=== PATIENT | female | born 1980 | race Caucasian/White ===

== ENCOUNTER → 2018-05-11 11:46 | Outpatient (CLI) | payer OTHER, SELFPAY ==
[2018-05-11 14:53] LABS: Thyroid Stim Hormone (TSH) 0.88 uIU/mL (0.358-3.74)
== END ==
PROVIDERS: Nurse Practitioner Adult Health; Family Provider Family Medicine; PCP Family Medicine; Visit Provider Family Medicine
DX: F41.9 Anxiety disorder, unspecified (principal); F32.9 Major depressive disorder, single episode, unspecified
CPT/HCPCS: 36415; 84443

== ENCOUNTER → 2020-08-08 | Outpatient (CLI) | payer OTHER, SELFPAY ==
[2018-02-08 11:53] VITALS: BMI 17.9
[2020-08-08 15:18] LABS: Absolute Lymphocyte Count 1.71 X10^3/uL (0.83-4.51); Absolute Neutrophil Count 5.4 X10^3/uL (2.0-7.7); Basophil# 0.03 X10^3/uL; Basophil% 0.4 % (0-1); Eosinophil# 0.01 X10^3/uL; Eosinophils% 0.1 % (0-5); Hematocrit 37.7 % (37-47); Lymphocyte # 1.71 X10^3/ul (4.0); Lymphocyte % 22.1 % (19-41); Mean Corp Hgb Conc 31.8 g/dL (32-36); Mean Corpuscular Hgb 28.4 pg (27.0-32.0); Mean Corpuscular Volume 89.1 fL (81-99); Monocyte# 0.54 X10^3/uL; NRBC Flagged by Analyzer 0 % (0-5); Neutrophil # 5.42 X10^3/uL (2.7-7.7); Platelet Count 264 K/mm3 (150-450); RBC Distribution Width CV 12.8 % (11.6-14.6); RBC Distribution Width SD 41.8 fl (35.1-43.9); Red Blood Count 4.23 M/mm3 (4.2-5.4); White Blood Count 7.7 K/mm3 (4.4-11.0)
[2020-08-08 15:34] LABS: ALB/GLOB Ratio 0.8 RATIO (0.9-2.4); AST(SGOT) 13 U/L (15-37); Alanine Aminotransfer ALT/SGPT 17 U/L (13-56); Albumin, Serum 3.2 g/dL (3.2-5.0); Alkaline Phosphatase 81 U/L (45-117); Anion Gap 5 (5-15); BUN 9 mg/dL (7-18); BUN/Creat Ratio 11.6 RATIO (10-20); Calcium,Total 8.6 mg/dL (8.5-10.1); Chloride 106 mmol/L (98-107); Creatinine, Serum 0.78 mg/dL (0.55-1.02); EST Glomerular Filtration Rate 89 mL/min (>60); Est Glom Filt Rate - Afr Amer 107 mL/min (>60); Globulin 3.8 g/dL (2.2-4.2); Glucose 83 mg/dL (74-106); Potassium 3.9 mmol/L (3.5-5.1); Sodium Level 139 mmol/L (136-145); T4 Free Direct 1.13 ng/dL (0.76-1.46); Thyroid Stim Hormone (TSH) 1.82 uIU/mL (0.358-3.74)
== END | disposition home or self-care (01) ==
LOC: MTLAB 12:37
PROVIDERS: PCP Family Medicine; Referring Provider Family Medicine; Visit Provider Family Medicine
DX: F41.8 Other specified anxiety disorders (principal); F98.8 Other specified behavioral and emotional disorders with onset usually occurring in childhood and adolescence
CPT/HCPCS: 36415; 80053; 84439; 84443; 85025

== ENCOUNTER → 2020-10-27 16:23 | Outpatient (CLI) | payer OTHER, SELFPAY ==
[2018-02-08 11:53] VITALS: BMI 17.9
== END ==
PROVIDERS: PCP Family Medicine; Visit Provider Nurse Practitioner Family
DX: Z20.828 Contact with and (suspected) exposure to other viral communicable diseases (principal)
CPT/HCPCS: 87635; U0003

== ENCOUNTER → 2020-11-05 | Outpatient (CLI) | payer OTHER, SELFPAY | END | disposition home or self-care (01) | LOC: LABSPEC 13:58 | PROVIDERS: PCP Family Medicine; Visit Provider Family Medicine | DX: Z20.828 Contact with and (suspected) exposure to other viral communicable diseases (principal) | CPT/HCPCS: 87633; 87635; U0003 ==

== ENCOUNTER 2022-01-25 14:21 | Outpatient (CLI) | payer BC, SELFPAY ==
[2022-02-01 17:54] LABS: HPV APTIMA, High Risk Negative (Negative)
== END 2022-01-25 23:59 | disposition home or self-care (01) ==
LOC: LABSPEC 14:29
PROVIDERS: PCP Family Medicine; Visit Provider Student in an Organized Health Care Education/Training Program
DX: Z12.4 Encounter for screening for malignant neoplasm of cervix (principal)
CPT/HCPCS: 87624; 88175; G0145

== ENCOUNTER → 2022-04-23 | Outpatient (CLI) | payer BC, SELFPAY ==
[2022-04-23 12:24] LABS: Absolute Lymphocyte Count 1.94 X10^3/uL (0.83-4.51); Absolute Neutrophil Count 5.2 X10^3/uL (2.0-7.7); Basophil# 0.03 X10^3/uL; Basophil% 0.4 % (0-1); Eosinophil# 0.06 X10^3/uL; Eosinophils% 0.8 % (0-5); Hematocrit 41.9 % (37-47); Hemoglobin 13.6 g/dL (12.0-15.0); Lymphocyte # 1.94 X10^3/ul (0.83-4.51); Mean Corp Hgb Conc 32.5 g/dL (32-36); Mean Corpuscular Hgb 28.2 pg (27.0-32.0); Mean Corpuscular Volume 86.9 fL (81-99); Mean Platelet Vol. 10.5 fl (6.2-12.0); Monocyte# 0.52 X10^3/uL; Monocyte% 6.7 % (0-10); NRBC Flagged by Analyzer 0 % (0-5); Neutrophil # 5.18 X10^3/uL (2.7-7.7); Neutrophil % 66.7 % (47-70); Platelet Count 304 K/mm3 (150-450); RBC Distribution Width CV 12.3 % (11.6-14.6); RBC Distribution Width SD 39.5 fl (35.1-43.9); Red Blood Count 4.82 M/mm3 (4.2-5.4); White Blood Count 7.8 K/mm3 (4.4-11.0)
[2022-04-23 12:40] LABS: Vitamin D,25 Hydroxy 29.6 ng/mL
[2022-04-23 12:40] LABS: Amphetamine Urine VISTA NEGATIVE (<1000 ng/mL); Barbiturate Urine VISTA NEGATIVE (< 200 ng/mL); Benzodiazepine Urine VISTA NEGATIVE (< 200 ng/mL); Cocaine Urine VISTA NEGATIVE (< 300 ng/mL); Ecstacy Urine VISTA NEGATIVE (< 500 ng/mL); Methadone Urine VISTA NEGATIVE (< 300 ng/mL); PCP Urine VISTA NEGATIVE (< 25 ng/mL); THC Urine VISTA NEGATIVE (< 50 ng/mL); Vista UDS pH Range 8
[2022-04-23 12:45] LABS: PTHIN 71.6 pg/mL (18.4-80.1)
[2022-04-23 12:49] LABS: ALB/GLOB Ratio 0.9 RATIO (0.9-2.4); AST(SGOT) 11 U/L (15-37); Alanine Aminotransfer ALT/SGPT 14 U/L (13-56); Albumin, Serum 3.5 g/dL (3.2-5.0); Alkaline Phosphatase 79 U/L (45-117); Anion Gap 6 (5-15); BUN 9 mg/dL (7-18); BUN/Creat Ratio 10.9 RATIO (10-20); Calcium,Total 9.2 mg/dL (8.5-10.1); Chloride 101 mmol/L (98-107); Creatinine, Serum 0.83 mg/dL (0.55-1.02); EST Glomerular Filtration Rate 81 mL/min (>60); Est Glom Filt Rate - Afr Amer 98 mL/min (>60); Globulin 3.9 g/dL (2.2-4.2); Glucose 101 mg/dL (74-106); Potassium 3.5 mmol/L (3.5-5.1); Protein, Total 7.4 g/dL (6.4-8.2); Sodium Level 135 mmol/L (136-145); Thyroid Stim Hormone (TSH) 1.44 uIU/mL (0.358-3.74)
== END | disposition home or self-care (01) ==
LOC: MTLAB 10:27
PROVIDERS: PCP Family Medicine; Referring Provider Family Medicine; Visit Provider Family Medicine
DX: F98.8 Other specified behavioral and emotional disorders with onset usually occurring in childhood and adolescence (principal); M85.80 Other specified disorders of bone density and structure, unspecified site
CPT/HCPCS: 36415; 80053; 80307; 82306; 83970; 84443; 85025

== ENCOUNTER → 2022-11-30 | Outpatient (CLI) | payer BC, SELFPAY ==
--- NOTE | 2022-11-30 10:05 | BD_ITS ---
STUDY: DUAL ENERGY X-RAY ABSORPTIOMETRY / DXA REASON FOR EXAM: Female, 41 years old. 733.90OsteopeniaBONE DENSITY REASON FOR EXAM TECHNIQUE: Bone Mineral Density (BMD) measurements of lumbar spine and bilateral hips were obtained. COMPARISON: Comparison is made with prior study to 07/01/2015. FINDINGS: Lumbar Spine (L1-L4): g/cm2 (0.947) / T-score (-1.0) / Z-score (-0.8) Findings are suggestive of normal bone density with a low fracture risk. Left Femur Total: g/cm2 (0.692) / T-score (-2.1) / Z-score (-1.9) Left Femoral Neck: g/cm2 (0.777) / T-score (-0.7) / Z-score (-0.4) Right Femur Total: g/cm2 (0.663) / T-score (-2.3) / Z-score (-2.1) Right Femoral Neck: g/cm2 (0.710) / T-score (-1.3) / Z-score (-1.0) The T-Scores on the most recent prior examination were: Lumbar Spine (L1-L4): There has been improvement of bone density since the previous examination. Left Femur Total: which represents an improvement of 1.2%. Right Femur Total: which represents an improvement of 1.3%. BD/Dexa Bone Density Study IMPRESSION: The patient is considered osteopenic as outlined below according to World Art[employer] Organization (WHO) criteria with a moderate fracture risk. There has been improvement of bone density since the previous examination. Reference Information: The T-score is the number of standard deviations above or below the standard which is normal for young adults at their peak bone mineral density. The World Health Organization (WHO) interprets the T-scores as follows: Above -1 Normal bone density Between -1 and -2.5 Osteopenia Equal to / or below -2.5 Osteoporosis As a practical clinical guideline, osteopenia may be graded as follows: Mild -1 through -1.5 Moderate -1.6 through -2.0 Severe -2.1 through -2.4 The Z-score is the number of standard deviations above or below age-matched controls. A Z-score of less than -1.5 would be considered abnormal. References: 1. NIH Osteoporosis and Related Bone Diseases www osteo.org 2. International Society for Clinical Densitometry www iscd.org 3. National Osteoporosis Foundation www nof.org Electronically Signed: Jd Middleton MD at 15:40 EST ,
== END | disposition home or self-care (01) ==
LOC: OPBD 09:51
PROVIDERS: PCP Family Medicine; Visit Provider Family Medicine
DX: M85.80 Other specified disorders of bone density and structure, unspecified site (principal)
CPT/HCPCS: 77080

== ENCOUNTER → 2023-02-09 | Outpatient (CLI) | payer BC, SELFPAY ==
--- NOTE | 2023-02-09 08:17 | BI_ITS ---
MAMMOGRAPHY - BILATERAL SCREENING REASON FOR EXAM: Female, 42 years old. Routine annual screening examination. PERTINENT HISTORY: Non-contributory. TECHNIQUE: Digital bilateral breast keely (3D mammographic acquisition) in the CC and MLO projections. 2-D mediolateral oblique (MLO) and craniocaudad (CC) views of both breasts were obtained. CAD: Full Field Digital Mammography with Computer Added Detection was performed. COMPARISON: None. Baseline examination. FINDINGS: Breast Composition: The breasts are extremely dense, which lowers the sensitivity of mammography. There are no dominant masses or suspicious calcifications. No other significant abnormalities are identified. BI/SCRN MAMM (CAD)W/KEELY BILAT IMPRESSION: Negative screening mammogram. Yearly followup mammogram recommended. (A) ASSESSMENT CATEGORY: BIRADS Category 1: Negative. A letter regarding these results will be sent to the patient by the facility within 30 days. Approximately 10% of breast cancers are not detected by mammography. A normal mammogram should not delay biopsy of a clinically suspicious abnormality. [id number] Electronically Signed: Jd Middleton MD at 9:03 EDT ,
== END | disposition home or self-care (01) ==
LOC: OPBI 08:15
PROVIDERS: PCP Family Medicine; Visit Provider Student in an Organized Health Care Education/Training Program
DX: Z12.31 Encounter for screening mammogram for malignant neoplasm of breast (principal)
CPT/HCPCS: 77063; 77067

== ENCOUNTER → 2023-05-27 | Outpatient (CLI) | payer BC, SELFPAY ==
[2023-05-27 16:47] LABS: AST(SGOT) 16 U/L (15-37); Alanine Aminotransfer ALT/SGPT 17 U/L (13-56); Albumin, Serum 3.3 g/dL (3.2-5.0); Alkaline Phosphatase 63 U/L (45-117); Anion Gap 5 (5-15); BUN 10 mg/dL (7-18); BUN/Creat Ratio 15.2 RATIO (10-20); Calcium,Total 8.5 mg/dL (8.5-10.1); Chloride 109 mmol/L (98-107); Cholesterol 191 mg/dL (200); Creatinine, Serum 0.66 mg/dL (0.55-1.02); EST Glomerular Filtration Rate 105 mL/min (>60); Est Glom Filt Rate - Afr Amer 127 mL/min (>60); Globulin 3.2 g/dL (2.2-4.2); Glucose 87 mg/dL (74-106); High Density Lipoprotein 73 mg/dL; Potassium 4.5 mmol/L (3.5-5.1); Protein, Total 6.5 g/dL (6.4-8.2); Sodium Level 141 mmol/L (136-145); Triglycerides 127 mg/dL; Very Low Density Lipoprotein 25 mg/dL (5-40)
== END | disposition home or self-care (01) ==
LOC: MFPLAB 10:42
PROVIDERS: PCP Family Medicine; Visit Provider Family Medicine
DX: Z00.00 Encounter for general adult medical examination without abnormal findings (principal)
CPT/HCPCS: 36415; 80053; 80061; 82306

== ENCOUNTER → 2025-06-13 | Outpatient (CLI) | payer BC, SELFPAY | END | disposition home or self-care (01) | LOC: OPBI 10:55 | PROVIDERS: PCP Family Medicine; Referring Provider Nurse Practitioner Family; Visit Provider Nurse Practitioner Family | DX: Z12.31 Encounter for screening mammogram for malignant neoplasm of breast (principal) | CPT/HCPCS: 77063; 77067 ==

== ENCOUNTER → 2025-06-25 | Outpatient (CLI) | payer BC, SELFPAY ==
--- NOTE | 2025-06-25 09:25 | US_ITS ---
PROCEDURE: BREAST COMPLETE UNILATERAL 06/25/2025 REASON FOR EXAM: 44-year-old female presents for follow-up of the right breast findings seen on examination of 06/13/2025. No family history of breast cancer. COMPARISON: 06/13/2025, 02/09/2023,. TECHNIQUE: BREAST COMPLETE UNILATERAL FINDINGS: Ultrasound performed of the entire right breast, as well as the right axilla. There is a cystic-solid mass with internal flow in the right breast at 12 o'clock 4 cm from the nipple measuring 1.5 x 1.4 x 0.6 cm. This correlates with the mammographic finding. There is a mass with a fatty kaylene in the right breast at 8:30 o'clock 2 cm from the nipple, measuring 1.3 x 1.2 x 0.5 cm. This likely mass represents an intramammary lymph node or 2 adjacent intramammary lymph nodes. There are 2 architecturally normal-appearing prominent right axillary lymph node. US/Breast Complete Unilateral IMPRESSION: Suspicious cystic solid mass in the right breast at 12 o'clock. Recommend tiss ue sampling with ultrasound guided core needle biopsy. BI-RADS 4: SUSPICIOUS RECOMMENDATION: Biopsy Recommended Reading Location: [id number]
== END | disposition home or self-care (01) ==
PROVIDERS: PCP Family Medicine; Referring Provider Nurse Practitioner Family; Visit Provider Nurse Practitioner Family
DX: N63.11 Unspecified lump in the right breast, upper outer quadrant (principal)
CPT/HCPCS: 76641

== ENCOUNTER → 2025-06-28 | Outpatient (CLI) | payer BC, SELFPAY ==
[2025-06-28 08:23] LABS: Mucous, Urine 0 SEEN /hpf (<or=2+)
[2025-06-28 12:19] LABS: Hematocrit 39.8 % (37-47); Hemoglobin 12.8 g/dL (12.0-15.0); Immature Granulocytes Count 0.030 X10^3/uL (0.0-0.0); Mean Corp Hgb Conc 32.2 g/dL (32-36); Mean Corpuscular Volume 88.1 fL (81-99); Mean Platelet Vol. 10.9 fl (6.2-12.0); NRBC Flagged by Analyzer 0 % (0-5); Platelet Count 264 K/mm3 (150-450); RBC Distribution Width CV 12.9 % (11.6-14.6); RBC Distribution Width SD 41.3 fl (35.1-43.9); Red Blood Count 4.52 M/mm3 (4.2-5.4); White Blood Count 6.4 K/mm3 (4.4-11.0)
[2025-06-28 12:52] LABS: Barbiturate Urine NEGATIVE (< 200 ng/mL); Benzodiazepine Urine NEGATIVE (< 200 ng/mL); PCP Urine NEGATIVE (< 25 ng/mL); THC Urine NEGATIVE (< 50 ng/mL)
[2025-06-28 12:59] LABS: Color, Urine Yellow (Yellow); Glucose, Dipstick Normal (Normal); Ketone-Dipstick Negative (Negative); Leukocyte Esterase-Dipstick 25 /ul (Negative); Nitrite-Dipstick Negative (Negative); Occult Blood-Urine 50 /ul (Negative); Protein-Dipstick 30 mg/dl (Negative); Specific Gravity, Urine 1.010 (1.002-1.030); Urine Bilirubin Dipstick Negative (Negative)
[2025-06-28 13:09] LABS: AST(SGOT) 16 U/L (<=31); Alanine Aminotransfer ALT/SGPT 12 U/L (<=34); Albumin, Serum 3.9 g/dL (3.5-5.0); Alkaline Phosphatase 72 U/L (35-104); Anion Gap 13 (5-15); BUN 15 mg/dL (4-19); BUN/Creat Ratio 20.4 RATIO (10-20); Calcium,Total 9.2 mg/dL (7.6-11.0); Carbon Dioxide 25.8 mmol/L (21.0-32.0); Chloride 102 mmol/L (98-108); Cholesterol 201 mg/dL (<=200); Globulin 2.8 g/dL (2.2-4.2); Glucose 106 mg/dL (70-99); Low Density Lipoprotein Calc. 110 mg/dL; Potassium 3.7 mmol/L (3.3-5.1); Triglycerides 100 mg/dL; Very Low Density Lipoprotein 20 mg/dL (5-40); Vitamin B12 287 pg/mL (180-914); Vitamin D,25 Hydroxy 37.0 ng/mL (30-100); cholesterol:hdl ratio screen 2.84
[2025-06-28 13:19] LABS: Red Blood Cells-Urine 0-5 SEEN /hpf (0-5); Squamous Epithelial Cells - UA 0-5 SEEN /hpf (5-10)
== END | disposition home or self-care (01) ==
PROVIDERS: PCP Family Medicine; Visit Provider Nurse Practitioner Family
DX: Z00.00 Encounter for general adult medical examination without abnormal findings (principal); R53.83 Other fatigue; Z13.29 Encounter for screening for other suspected endocrine disorder; Z13.220 Encounter for screening for lipoid disorders
CPT/HCPCS: 36415; 80053; 80061; 80307; 81001; 82306; 82607; 84439; 84443; 85025

== ENCOUNTER → 2025-07-02 | Outpatient (CLI) | payer BC, SELFPAY ==
--- NOTE | 2025-07-02 08:30 | BRBX_PTH ---
PATIENT: RENARD BUSTAMANTE LOC: [facility] U#:[id number] AGE/SX: 44/F ROOM: RE07/02/[address]: Dr. Fatuma Last MD : 1980 BED: DIS: 07/02/2025 SPEC #: [id number] RECD: 07/02/25 09:31 STATUS: CORINNE REJoanna #: [id number] NETO: 07/02/25 08:[address]: Fatuma Last DEPT: SURGICAL PATHOLOGY RECD BY: Navneet Gerardo ENTERED: 07/02/25 12:16 SP TYPE: BREAST BX OT DR: Dr. Marquis Mina MD Tissues: A - Right breast, NOS Procedures: Surgery Specimen Level IV HEADER OPERATION: Biopsy of right breast mass PRE-OP DIAGNOSIS: Right breast mass TISSUE SUBMITTED: A- Right breast tissue - 12o'clock - 4cm from nipple MICROSCOPIC DIAGNOSIS A. Breast, right, 12 o'clock, 4 CMFN, core biopsy: - Fibroadenoma. MICROSCOPIC DESCRIPTION Slides are reviewed. GROSS DESCRIPTION A. Received in formalin labeled with the patient's name and date of . Designated as R breast tissue 12:00 4 cm FTN are 2 david-yellow to white tissue cores, 0.9 cm and 1.3 cm in length by 0.1 cm in diameter. Entirely submitted in 1 cassette. Cold ischemic time: < 1 minuteFormalin fixation time: 11 hours AL 07/02/2025 CPT:63595
== END | disposition home or self-care (01) ==
LOC: LABSPEC 09:34
PROVIDERS: PCP Family Medicine; Referring Provider Surgery; Visit Provider Surgery
DX: D24.1 Benign neoplasm of right breast (principal)
CPT/HCPCS: 88305

== ENCOUNTER → 2025-08-26 | Outpatient (CLI) | payer BC, SELFPAY ==
--- NOTE | 2025-08-26 09:40 | RAD_ITS ---
PROCEDURE: HAND MIN 3 VIEWS; WRIST MIN 3 VIEWS 08/26/2025 REASON FOR EXAM: ARTHRITIS; ARTHRITIS TECHNIQUE: Procedure Code: ARDHA; SWETHA Modality: DX Procedure: HAND MIN 3 VIEWS; WRIST MIN 3 VIEWS Laterality: Bilateral bilateral hand and wrist radiographs were obtained with AP oblique and lateral views. COMPARISON: None FINDINGS: Bones: No acute fracture or dislocation bilaterally Joints: Preserved joint spaces bilaterally. No acute fracture or dislocation. No erosions. Symmetric appearance of the joints bilaterally. The radiocarpal joints are intact. The distal radioulnar joints are intact. Soft tissues: Soft tissues are unremarkable. RAD/Wrist min 3 Views IMPRESSION: 1. No acute fracture or dislocation. 2. Symmetric, normal appearance of the hands and wrists bilaterally without e vidence of joint space narrowing or erosive arthropathy. Reading Location[facility]
--- NOTE | 2025-08-26 09:40 | RAD_ITS ---
PROCEDURE: HAND MIN 3 VIEWS; WRIST MIN 3 VIEWS 08/26/2025 REASON FOR EXAM: ARTHRITIS; ARTHRITIS TECHNIQUE: Procedure Code: ARDHA; RADSUKHJINDER Modality: DX Procedure: HAND MIN 3 VIEWS; WRIST MIN 3 VIEWS Laterality: Bilateral bilateral hand and wrist radiographs were obtained with AP oblique and lateral views. COMPARISON: None FINDINGS: Bones: No acute fracture or dislocation bilaterally Joints: Preserved joint spaces bilaterally. No acute fracture or dislocation. No erosions. Symmetric appearance of the joints bilaterally. The radiocarpal joints are intact. The distal radioulnar joints are intact. Soft tissues: Soft tissues are unremarkable. RAD/Hand Min 3 Views IMPRESSION: 1. No acute fracture or dislocation. 2. Symmetric, normal appearance of the hands and wrists bilaterally without e vidence of joint space narrowing or erosive arthropathy. Reading Location[facility]
--- NOTE | 2025-08-26 09:40 | RAD_ITS ---
PROCEDURE: HAND MIN 3 VIEWS; WRIST MIN 3 VIEWS 08/26/2025 REASON FOR EXAM: ARTHRITIS; ARTHRITIS TECHNIQUE: Procedure Code: ARDHA; SWETHA Modality: DX Procedure: HAND MIN 3 VIEWS; WRIST MIN 3 VIEWS Laterality: Bilateral bilateral hand and wrist radiographs were obtained with AP oblique and lateral views. COMPARISON: None FINDINGS: Bones: No acute fracture or dislocation bilaterally Joints: Preserved joint spaces bilaterally. No acute fracture or dislocation. No erosions. Symmetric appearance of the joints bilaterally. The radiocarpal joints are intact. The distal radioulnar joints are intact. Soft tissues: Soft tissues are unremarkable. RAD/Wrist min 3 Views IMPRESSION: 1. No acute fracture or dislocation. 2. Symmetric, normal appearance of the hands and wrists bilaterally without e vidence of joint space narrowing or erosive arthropathy. Reading Location[facility]
--- NOTE | 2025-08-26 09:40 | RAD_ITS ---
PROCEDURE: HAND MIN 3 VIEWS; WRIST MIN 3 VIEWS 08/26/2025 REASON FOR EXAM: ARTHRITIS; ARTHRITIS TECHNIQUE: Procedure Code: ARDHA; SWETHA Modality: DX Procedure: HAND MIN 3 VIEWS; WRIST MIN 3 VIEWS Laterality: Bilateral bilateral hand and wrist radiographs were obtained with AP oblique and lateral views. COMPARISON: None FINDINGS: Bones: No acute fracture or dislocation bilaterally Joints: Preserved joint spaces bilaterally. No acute fracture or dislocation. No erosions. Symmetric appearance of the joints bilaterally. The radiocarpal joints are intact. The distal radioulnar joints are intact. Soft tissues: Soft tissues are unremarkable. RAD/Hand Min 3 Views IMPRESSION: 1. No acute fracture or dislocation. 2. Symmetric, normal appearance of the hands and wrists bilaterally without e vidence of joint space narrowing or erosive arthropathy. Reading Location[facility]
--- NOTE | 2025-08-26 09:40 | RAD_ITS ---
PROCEDURE: HAND MIN 3 VIEWS; WRIST MIN 3 VIEWS 08/26/2025 REASON FOR EXAM: ARTHRITIS; ARTHRITIS TECHNIQUE: Procedure Code: ARDHA; SWETHA Modality: DX Procedure: HAND MIN 3 VIEWS; WRIST MIN 3 VIEWS Laterality: Bilateral bilateral hand and wrist radiographs were obtained with AP oblique and lateral views. COMPARISON: None FINDINGS: Bones: No acute fracture or dislocation bilaterally Joints: Preserved joint spaces bilaterally. No acute fracture or dislocation. No erosions. Symmetric appearance of the joints bilaterally. The radiocarpal joints are intact. The distal radioulnar joints are intact. Soft tissues: Soft tissues are unremarkable. RAD/Wrist min 3 Views IMPRESSION: 1. No acute fracture or dislocation. 2. Symmetric, normal appearance of the hands and wrists bilaterally without e vidence of joint space narrowing or erosive arthropathy. Reading Location: [facility]
--- NOTE | 2025-08-26 09:40 | RAD_ITS ---
PROCEDURE: HAND MIN 3 VIEWS; WRIST MIN 3 VIEWS 08/26/2025 REASON FOR EXAM: ARTHRITIS; ARTHRITIS TECHNIQUE: Procedure Code: ARDHA; SWETHA Modality: DX Procedure: HAND MIN 3 VIEWS; WRIST MIN 3 VIEWS Laterality: Bilateral bilateral hand and wrist radiographs were obtained with AP oblique and lateral views. COMPARISON: None FINDINGS: Bones: No acute fracture or dislocation bilaterally Joints: Preserved joint spaces bilaterally. No acute fracture or dislocation. No erosions. Symmetric appearance of the joints bilaterally. The radiocarpal joints are intact. The distal radioulnar joints are intact. Soft tissues: Soft tissues are unremarkable. RAD/Hand Min 3 Views IMPRESSION: 1. No acute fracture or dislocation. 2. Symmetric, normal appearance of the hands and wrists bilaterally without e vidence of joint space narrowing or erosive arthropathy. Reading Location: [facility]
--- NOTE | 2025-08-26 09:40 | RAD_ITS ---
PROCEDURE: HAND MIN 3 VIEWS; WRIST MIN 3 VIEWS 08/26/2025 REASON FOR EXAM: ARTHRITIS; ARTHRITIS TECHNIQUE: Procedure Code: ARDHA; SWETHA Modality: DX Procedure: HAND MIN 3 VIEWS; WRIST MIN 3 VIEWS Laterality: Bilateral bilateral hand and wrist radiographs were obtained with AP oblique and lateral views. COMPARISON: None FINDINGS: Bones: No acute fracture or dislocation bilaterally Joints: Preserved joint spaces bilaterally. No acute fracture or dislocation. No erosions. Symmetric appearance of the joints bilaterally. The radiocarpal joints are intact. The distal radioulnar joints are intact. Soft tissues: Soft tissues are unremarkable. RAD/Wrist min 3 Views IMPRESSION: 1. No acute fracture or dislocation. 2. Symmetric, normal appearance of the hands and wrists bilaterally without e vidence of joint space narrowing or erosive arthropathy. Reading Location: [facility]
--- NOTE | 2025-08-26 09:40 | RAD_ITS ---
PROCEDURE: HAND MIN 3 VIEWS; WRIST MIN 3 VIEWS 08/26/2025 REASON FOR EXAM: ARTHRITIS; ARTHRITIS TECHNIQUE: Procedure Code: ARDHA; RADSUKHJINDER Modality: DX Procedure: HAND MIN 3 VIEWS; WRIST MIN 3 VIEWS Laterality: Bilateral bilateral hand and wrist radiographs were obtained with AP oblique and lateral views. COMPARISON: None FINDINGS: Bones: No acute fracture or dislocation bilaterally Joints: Preserved joint spaces bilaterally. No acute fracture or dislocation. No erosions. Symmetric appearance of the joints bilaterally. The radiocarpal joints are intact. The distal radioulnar joints are intact. Soft tissues: Soft tissues are unremarkable. RAD/Hand Min 3 Views IMPRESSION: 1. No acute fracture or dislocation. 2. Symmetric, normal appearance of the hands and wrists bilaterally without e vidence of joint space narrowing or erosive arthropathy. Reading Location: [facility]
[2025-08-26 12:39] LABS: Hematocrit 39.1 % (37-47); Hemoglobin 12.7 g/dL (12.0-15.0); Immature Granulocytes Count 0.030 X10^3/uL (0.0-0.0); Mean Corp Hgb Conc 32.5 g/dL (32-36); Mean Corpuscular Volume 87.3 fL (81-99); Mean Platelet Vol. 10.4 fl (6.2-12.0); NRBC Flagged by Analyzer 0 % (0-5); Platelet Count 288 K/mm3 (150-450); RBC Distribution Width CV 12.5 % (11.6-14.6); RBC Distribution Width SD 40.1 fl (35.1-43.9); Red Blood Count 4.48 M/mm3 (4.2-5.4); White Blood Count 9.9 K/mm3 (4.4-11.0)
[2025-08-26 13:22] LABS: AST(SGOT) 20 U/L (<=31); Alanine Aminotransfer ALT/SGPT 10 U/L (<=34); Albumin, Serum 3.8 g/dL (3.5-5.0); Alkaline Phosphatase 72 U/L (35-104); Anion Gap 9 (5-15); BUN 19 mg/dL (4-19); BUN/Creat Ratio 27.6 RATIO (10-20); CRP 12.50 mg/L (0.0-3.0); Calcium,Total 9.2 mg/dL (7.6-11.0); Carbon Dioxide 26.9 mmol/L (21.0-32.0); Chloride 100 mmol/L (98-108); Globulin 3.0 g/dL (2.2-4.2); Glucose 103 mg/dL (70-99); Potassium 4.4 mmol/L (3.3-5.1); Vitamin D,25 Hydroxy 40.1 ng/mL (30-100)
[2025-08-27 13:08] LABS: ANTINUCLEAR ANTIBODIES DIRECT Negative (Negative)
[2025-08-27 16:09] LABS: PROEL- A/G Ratio 1.1 (0.7-1.7); PROEL- Albumin 3.3 g/dL (2.9-4.4); PROEL- Alpha-1 Globulin 0.3 g/dL (0.0-0.4); PROEL- Alpha-2 Globulin 0.7 g/dL (0.4-1.0); PROEL- Beta Globulin 1.1 g/dL (0.7-1.3); PROEL- Gamma Globulin 1.0 g/dL (0.4-1.8); PROEL- Globulin, Total 3.1 g/dL (2.2-3.9); PROEL- TOTAL PROTEIN 6.4 g/dL (6.0-8.5); PROEL-M-Spike Not Observed g/dL (Not Observed)
== END | disposition home or self-care (01) ==
LOC: MTLAB 09:40
PROVIDERS: PCP Family Medicine; Referring Provider Family Medicine; Visit Provider Family Medicine
DX: M19.041 Primary osteoarthritis, right hand (principal); M19.042 Primary osteoarthritis, left hand
CPT/HCPCS: 36415; 73110; 73130; 80053; 82306; 84165; 85025; 85652; 86038; 86140; 86431